=== PATIENT | female | born 1950 | race Caucasian/White ===

== ENCOUNTER 2020-08-09 11:54 | Outpatient (CLI) | payer MEDICARE ==
--- NOTE | 2020-08-09 14:10 | RAD ---
LEFT HAND 3 VIEWS: Date: 08/09/2020 HISTORY: Left hand pain. FINDINGS: There is osteopenia. Degenerative changes of the wrist noted with narrowing of the radiocarpal joint and narrowing and sclerosis at the scaphotrapezium and mild DJD at the first carpometacarpal. MCP joints show mild narrowing without significant degenerative hypertrophic or erosive change. Significant degenerative change seen in the IP joints with joint narrowing, articular sclerosis, and hypertrophic changes. Findings are most pronounced at the DIP joints of the second and third digits. 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 Fi ndings are less consistent with erosive osteoarthritis. POS: [facility]
== END 2020-08-09 11:55 | disposition home or self-care (01) ==
LOC: NAV RAD 11:54
PROVIDERS: ATTEND Family Medicine
DX: M79.642 Pain in left hand (principal); M19.042 Primary osteoarthritis, left hand

== ENCOUNTER 2024-09-22 11:54 | Inpatient (IN) | payer OTHER ==
[2024-09-22 16:13] VITALS: BMI 28.1
[2024-09-22] MEDS ORDERED: tiZANidine HCl 4 MG TAB PO PRN (16:57)
[2024-09-22] MEDS ORDERED: Ondansetron ODT 4 MG TAB PO PRN (17:00)
[2024-09-22] MEDS: Vancomycin HCl 125 MG Capsule PO SCH ×2 (18:20→18:36)
[2024-09-22] MEDS ORDERED: Dextrose 50% Abboject 50 ML SYRINGE SLOW IVP PRN (19:14)
[2024-09-22] MEDS ORDERED: Insulin Lispro 100 UNIT/ML 10 ML VIAL SC PRN ×2 (19:14)
[2024-09-22] MEDS ORDERED: Glucagon 1 MG/ML KIT IM PRN (19:14)
[2024-09-22] MEDS: Floranex 1 GM Packet PO SCH (21:21)
[2024-09-22] MEDS: Gabapentin 100 MG CAP PO SCH (21:21)
[2024-09-22] MEDS: Pramipexole Di-HCl 0.25 MG TAB PO SCH (21:21)
[2024-09-22] MEDS: Sodium Bicarbonate Tab 325 MG TAB PO SCH (21:22)
[2024-09-22] MEDS: Acetaminophen 325 MG TAB PO PRN (21:22)
[2024-09-23] MEDS: traZODone HCl 50 MG TAB PO SCH (00:42)
[2024-09-23 05:49] LABS: #Eosinophils 0.1 thou/uL (0.0-0.7); #Lymphocytes 1.5 thou/uL (1.20-3.40); #Monocytes 0.5 thou/uL (0.11-0.59); #Neutrophils 2.4 thou/uL (1.40-6.50); %Basophils 0.8 % (0.0-1.0); %Eosinophils 1.7 % (0.0-10.0); %Lymphocytes 32.1 % (21.0-51.0); %Monocytes 11.7 % (0.0-10.0); %Neutrophils 53.7 % (42.0-75.0); Hematocrit 28.2 % (36.0-47.0); Hemoglobin 8.7 g/dL (12.0-16.0); Mean Corpuscular HGB CONC 30.8 g/dL (32.0-36.0); Mean Corpuscular Volume 94.4 fl (78.0-98.0); Mean Platelet Volume 8.3 fL (7.4-10.4); Platelet Count 167 10x3/uL (130-400); Red Blood Cell (RBC) Count 2.99 mill/uL (4.20-5.40); White Blood Cell (WBC) Count 4.5 10x3/uL (4.8-10.8)
[2024-09-23] MEDS: Levothyroxine Sodium 75 MCG TAB PO SCH (05:53)
[2024-09-23 06:00] VITALS: BMI 28.1
[2024-09-23 06:14] LABS: ALT (SGPT) 10 U/L (8-55); AST (SGOT) 13 U/L (5-34); Albumin 2.1 g/dL (3.4-4.8); Alkaline Phosphatase 79 U/L (40-110); Anion Gap 11 mmol/L (10-20); BUN (Urea Nitrogen) 18 mg/dL (9.8-20.1); Bilirubin, Total 0.3 mg/dL (0.2-1.2); Calc. Creatinine Clearance 27 mL/min (70-130); Calcium 7.7 mg/dL (7.8-10.44); Carbon Dioxide 23 mmol/L (23-31); Chloride 112 mmol/L (98-107); Estimated GFR 27; Globulin 2.2 g/dL (2.4-3.5); Glucose 81 mg/dL (83-110); Potassium 4.2 mmol/L (3.5-5.1); Protein, Total 4.3 g/dL (5.8-8.1); Sodium 142 mmol/L (136-145)
[2024-09-23] MEDS: Pantoprazole DR 40 MG TAB PO SCH (09:14)
[2024-09-23] MEDS: Ferrous Sulfate 325 MG TAB PO SCH (09:16)
[2024-09-23] MEDS: Citalopram 20 MG TAB PO SCH (09:16)
[2024-09-23] MEDS: Furosemide 40 MG TAB PO SCH (09:16)
[2024-09-23] MEDS: Oxybutynin 5 MG TAB PO SCH (09:16)
[2024-09-25 05:55] LABS: Anion Gap 11 mmol/L (10-20); BUN (Urea Nitrogen) 20 mg/dL (9.8-20.1); Calc. Creatinine Clearance 27 mL/min (70-130); Calcium 7.9 mg/dL (7.8-10.44); Carbon Dioxide 24 mmol/L (23-31); Chloride 107 mmol/L (98-107); Estimated GFR 28; Glucose 85 mg/dL (83-110); Potassium 4.2 mmol/L (3.5-5.1); Sodium 138 mmol/L (136-145)
[2024-09-25 07:24] VITALS: BP 157/81; TEMP 97.6
== END 2024-09-25 13:45 | disposition home or self-care (01) | DRG 945 ==
LOC: NAV ACUTE 15:35
PROVIDERS: ADMIT Family Medicine; ATTEND Family Medicine
PROC: F07Z9ZZ Gait Training/Functional Ambulation Treatment (ICD-10-PCS; principal; 2024-09-23)
DX: R53.81 Other malaise (principal); A04.72 Enterocolitis due to Clostridium difficile, not specified as recurrent; N18.4 Chronic kidney disease, stage 4 (severe); E11.22 Type 2 diabetes mellitus with diabetic chronic kidney disease; F41.9 Anxiety disorder, unspecified; F32.A Depression, unspecified; E03.9 Hypothyroidism, unspecified; Z96.653 Presence of artificial knee joint, bilateral; N32.81 Overactive bladder; K21.9 Gastro-esophageal reflux disease without esophagitis; Z79.899 Other long term (current) drug therapy
CPT/HCPCS: 36415; 36416; 80048; 80053; 85025